=== PATIENT | female | born 1950 | race Caucasian/White ===

== ENCOUNTER 2019-05-03 19:28 | Emergency (ER) | payer OTHER, MEDICAID ==
[~2019-05-03] VITALS: Ht 160 cm; Wt 75.8 kg
[2019-05-03] MEDS ORDERED: NEURONTIN 400400 M1 PO (19:59)
[2019-05-03] MEDS ORDERED: LOVASTATIN 20 M20 MG PO (19:59)
[2019-05-03] MEDS ORDERED: COZAAR 25 MG TA25 M2 PO (20:00)
[2019-05-03] MEDS ORDERED: CLEOCIN HCL150 MG PO (20:01)
[2019-05-03] MEDS ORDERED: LEVAQUIN 750 M750 MG PO (20:01)
[2019-05-03 20:09] LABS: URINE BILIRUBIN NEGATIVE (Negative); URINE BLOOD 3+ (Negative); URINE CLARITY CLEAR; URINE COLOR YELLOW; URINE GLUCOSE-RANDOM 2+ (Negative); URINE KETONES NEGATIVE (Negative); URINE LEUKOCYTES-REFLEX 2+ (Negative); URINE NITRITE-REFLEX NEGATIVE (Negative); URINE PROTEIN 2+ (Negative); URINE UROBILINOGEN 0.2 E.U./dl (0.2-1.0)
[2019-05-03 20:28] LABS: BACTERIA-REFLEX >30 Many /HPF (None Seen); CASTS None Seen /LPF (None Seen); CRYSTALS None Seen /LPF (None Seen); SQUAMOUS 0-3 Few /LPF (0-3); URINE RBC 0-2 Rare /HPF (0-2); URINE WBC-REFLEX >25 Many /HPF (0-5)
[2019-05-03 20:31] LABS: ABSOLUTE BASOPHILS 0.1 thou/uL (0.0-0.2); ABSOLUTE EOSINOPHILS 0.1 thou/uL (0.0-0.7); ABSOLUTE MONOCYTES 0.9 thou/uL (0.0-1.2); ABSOLUTE NEUTROPHILS 3.4 thou/uL (1.6-8.1); BASOPHILS 1.3 %; EOSINOPHILS 1.4 %; HEMATOCRIT 34.5 % (37.0-47.0); LYMPHOCYTES 39.6 %; MCH 28.8 pg (26.0-34.0); MCHC 31.8 g/dL (28.0-37.0); MCV 90.7 fL (80.0-100.0); MONOCYTES 12.2 %; MPV 7.1 fl. (7.2-11.1); NUCLEATED RBCS 0 /100WBC; PLATELET COUNT* 461 thou/uL (150-400); POLYS 45.5 %; RDW-CV 13.6 % (10.5-14.5); WBC 7.5 thou/uL (4.0-11.0)
[2019-05-03 20:49] LABS: ANION GAP 10 mmol/L (7-16); BUN 36 mg/dL (7-18); CALCIUM 9.4 mg/dL (8.5-10.1); CHLORIDE 105 mmol/L (98-107); CO2 22 mmol/L (21-32); GLUCOSE 327 mg/dL (70-99); POTASSIUM 5.1 mmol/L (3.5-5.1); SODIUM 137 mmol/L (136-145)
[2019-05-03 21:05] LABS: ALBUMIN 2.6 g/dL (3.4-5.0); ALKALINE PHOSPHATASE 70 U/L (46-116); LIPASE 240 U/L (73-393); SGOT 14 U/L (15-37); SGPT 22 U/L (30-65); TOTAL BILIRUBIN 0.2 mg/dL (<0.1-1.0); TOTAL PROTEIN 8.1 g/dL (6.4-8.2); TROPONIN-I LEVEL <0.06 ng/mL (<0.06)
[2019-05-03] MEDS ORDERED: AUGMENTIN 500-1 EACH PO (22:44)
[2019-05-03] MEDS ORDERED: PYRIDIUM200 M2 PO (22:44)
[2019-05-03 23:09] VITALS: BP 166/62
--- NOTE | 2019-05-04 11:21 | EKG ---
[place] [address] ELECTROCARDIOGRAM REPORT Name: BABITA COX [id number] Admission: 05/03/19 Attend Phys: Discharge: 05/03/19 Date of : 46 Report #: [id number] THIS REPORT FOR: //name// [facility] ED Test Date: 2019-05-03 Test Time: 20:17:42 Pat Name: BABITA COX Department: Room: Gender: F Equipment Manager: MS : 1950 Requested By: Cassia Mukherjee Order Number: [id number] MD: Kyler Orellana Measurements Intervals Tucker Rate: 69 P: 60 PA: 155 QRS: -37 QRSD: 86 T: 40 QT: 437 QTc: 469 Interpretive Statements Sinus rhythm Left axis deviation Baseline wander in lead(s) V3 No previous ECG available for comparison Electronically Signed On 05-04-2019 11:20:53 CDT by Kyler Orellana [email or web address] <ELECTRONICALLY SIGNED> By: Kyler Orellana MD, LOCATED WITHIN [facility] 05/04/19 1120 16 16 Kyler Orellana MD, FACC /EPI
== END 2019-05-03 23:09 | disposition home or self-care (01) ==
LOC: M.ERS 19:28
PROVIDERS: Personal Emergency Response Attendant
DX: N39.0 Urinary tract infection, site not specified (principal); I10 Essential (primary) hypertension; E11.9 Type 2 diabetes mellitus without complications; Z88.2 Allergy status to sulfonamides